=== PATIENT | male | born 1950 | race Caucasian/White ===

== ENCOUNTER 2018-03-19 12:07 | Emergency (ER) | payer MEDICARE, MEDICAID ==
[~2018-03-19] VITALS: Ht 175.3 cm; Wt 90.0 kg
[2018-03-19] MEDS ORDERED: HYDR10TA4 PO (12:32)
[2018-03-19] MEDS ORDERED: RANI-276 PO (12:32)
[2018-03-19] MEDS ORDERED: LISI-167 PO (12:32)
[2018-03-19] MEDS ORDERED: ASPI-515 PO (12:32)
[2018-03-19] MEDS ORDERED: ATOR20TA9 PO (12:32)
[2018-03-19] MEDS ORDERED: AMLO10TA6 PO (12:32)
[2018-03-19] MEDS ORDERED: ONDA4TAB10 PO (12:32)
[2018-03-19] MEDS ORDERED: FURO-93 PO (12:32)
[2018-03-19] MEDS ORDERED: ALBU0.63 NEB (12:32)
[2018-03-19 12:44] VITALS: BP 132/84
[2018-03-19 13:18] LABS: ALBUMIN 3.2 g/dL (3.4-5.0); ANION GAP 10 mmol/L (5-15); CHLORIDE 109 mmol/L (98-107)
[2018-03-19 13:25] LABS: ALANINE AMINOTRANSFERASE 40 U/L (12-78); ALKALINE PHOSPHATASE 107 U/L (45-117); BILIRUBIN,TOTAL 0.6 mg/dL (0.2-1.0); CALCIUM 8.3 mg/dL (8.5-10.1); CREATININE 0.68 mg/dL (0.7-1.3); TOTAL PROTEIN 6.9 g/dL (6.4-8.2); TROPONIN I < 0.015 ng/mL (0.000-0.045)
[2018-03-19 13:56] LABS: MEAN CORPUSCULAR HEMOGLOBIN 26.3 pg (27.5-34.5); MEAN CORPUSCULAR HGB CONC 33.4 g/dL (33.2-36.2); MEAN CORPUSCULAR VOLUME 78.7 fL (81-97); RED BLOOD COUNT 5.07 x10^6/uL (4.38-5.82); RED CELL DISTRIBUTION WIDTH 17.4 % (9.4-14.8)
[2018-03-19 14:00] LABS: MEAN PLATELET VOLUME 8.9 fL (7.4-10.4); PLATELET COUNT 161 x10^3/uL (130-400)
[2018-03-19 14:01] LABS: BASOPHILS # (AUTO) 0.06 x10^3/uL (0-0.1); BASOPHILS % (AUTO) 1 % (0-1); EOSINOPHILS # (AUTO) 0.23 x10^3/uL (0-0.4); EOSINOPHILS % (AUTO) 4 % (1-7); LYMPHOCYTES # (AUTO) 1.84 x10^3/uL (1-3.4); LYMPHOCYTES % (AUTO) 28 % (22-44); MD MORPH REVIEW ONLY; MONOCYTES # (AUTO) 0.58 x10^3/uL (0.2-0.8); MONOCYTES % (AUTO) 9 % (2-9); NEUTROPHILS # (AUTO) 3.79 x10^3/uL (1.8-6.8); NEUTROPHILS % (AUTO) 58 % (42-75)
[2018-03-19 14:08] LABS: ANISOCYTOSIS 1+; MICROCYTOSIS 1+; OVALOCYTES 1+
[2018-03-19 14:09] LABS: <PLATELET ESTIMATE> ADEQUATE; <PLT MORPHOLOGY> NORMAL PLT MORPH
== END 2018-03-19 14:58 | disposition home or self-care (01) ==
LOC: ED 13:11
DX: F32.0 Major depressive disorder, single episode, mild (principal); I50.9 Heart failure, unspecified
CPT/HCPCS: 36415; 71045; 80053; 83880; 84484; 85025; 93005; 99285